=== PATIENT | male | born 1990 | race African-American/Black ===

== ENCOUNTER 2017-01-17 19:18 | Emergency (ER) | payer BC ==
[~2017-01-17] VITALS: Ht 170.2 cm; Wt 70.3 kg
[~2017-01-17 19:18] MED LIST: BACLOFEN10 MG ORAL; CYCLOBENZAPRINE10 MG ORAL; IBUPROFEN600 MG ORAL; IBUPROFEN800 MG ORAL; NKM; NORCO 5-325 TA1 EACH ORAL; PENICILLIN V P500 MG PO
[2017-01-17] MEDS ORDERED: IBUPROFEN600 MG ORAL (19:41)
--- NOTE | 2017-01-17 19:45 | Emergency Room Report ---
History of Present Illness General Chief Complaint: Lower Extremity Injury Source: Patient Present Illness HPI 26YOM with 2 days right toe pain. Denies injury. Denies rash, redness or swelling to toe. Pain is 4/10 now. Been soaking in Epson salts. Not taking OTC meds. No history of gout. Denies fever/chills. Allergies: Coded Allergies: No Known Allergies (Unverified , 06/19/13) Patient History Past Medical History: none Past Surgical History: none Pertinent Family History: none Social History: Denies: alcohol use, drug use, smoking Immunizations: UTD Reviewed Nursing Documentation: PMH: Agreed, PSxH: Agreed Nursing Documentation-PMH Past Medical History: No Stated History Review of Systems All Other Systems: negative except mentioned in HPI Physical Exam Vital Signs Date Time Temp Pulse Resp B/P Pulse Ox O2 Delivery O2 Flow Rate FiO2 01/17/17 19:26 97.5 58 18 115/73 95 Room Air Sp02 EP Interpretation: reviewed, normal General Appearance: normal inspection, well appearing, no apparent distress, alert, GCS 15, non-toxic Head: normocephalic, atraumatic Eyes: bilateral eye EOMI, bilateral eye PERRL ENT: normal ENT inspection, hearing grossly normal, normal voice Neck: normal inspection, full range of motion, supple, no bony tend Respiratory: normal inspection, lungs clear, normal breath sounds, no respiratory distress, no retraction, no wheezing Cardiovascular #1: regular rate, rhythm, no edema Gastrointestinal: normal inspection, normal bowel sounds, non tender, soft, no guarding, no hernia Genitourinary: no CVA tenderness Musculoskeletal: other - Right foot: No obvious swelling, redness or deformity to right big toe. No hallus valgus. No tophi. No cellulitis. Mild ttp. Neurologic: normal inspection, alert, oriented x3, responsive, claim trainee III-XII nml as tested, motor strength/tone normal, speech normal Psychiatric: normal inspection, judgement/insight normal, mood/affect normal Skin: normal inspection, normal color, no rash Lymphatic: normal inspection Medical Decision Making Diagnostic Impression: Primary Impression: Great toe pain Qualified Codes: M79.674 - Pain in right toe(s) Additional Impression: Toe pain, right ER Course Atraumatic Afebrile. No sign of cellulitis No gophi. Unlikely gout Possible inflammation, fasciitis Patient refused IM/IV Analgesia in ED, was given PO Ibuprofen Rx Ibuprofen Advised ice/water bath 3x a day PMD followup as needed Last Vital Signs Date Time Temp Pulse Resp B/P Pulse Ox O2 Delivery O2 Flow Rate FiO2 01/17/17 19:26 97.5 58 18 115/73 95 Room Air Status: improved Disposition: HOME, SELF-CARE Condition: Improved Scripts Ibuprofen* (MOTRIN*) 600 Mg Tablet 600 MG ORAL THREE TIMES A DAY for For Pain, #30 TAB 0 Refills Prov: WALTER MORRIS M.D. 01/17/17 Additional Instructions: - Put foot in ice/water bucket as long as you can tolerate for 3-4x a day - Take ibuprofen as prescribed WITH FOOD up to 3x a day - Follow up with your doctor as needed WALTER MORRIS M.D. January 17, 2017 19:45
[2017-01-17 20:00] VITALS: BP 115/73
== END 2017-01-17 20:00 | disposition home or self-care (01) ==
LOC: EMR 19:37
DX: M79.674 Pain in right toe(s) (principal)
CPT/HCPCS: 99283